=== PATIENT | male | born 2005 | race Caucasian/White ===

== ENCOUNTER 2024-06-09 22:42 | Emergency (ER) | payer BC, SELFPAY ==
[2024-06-09 22:47] VITALS: BP 161/94; PULSE 101; TEMP 36.6; O2SAT 98; BMI 44.3
--- NOTE | 2024-06-09 23:06 | ED_ITS ---
HPI - Abdominal Pain General Chief Complaint: Abdominal Pain Stated Complaint: ABDOMINAL PAIN Time Seen by Provider: 06/09/24 22:49 Source: patient Mode of arrival: walk-in Limitations: no limitations History of Present Illness HPI narrative: This 19-year-old male presents for evaluation of generalized abdominal pain. He points to the middle area of his abdomen/periumbilical area as area of greatest pain. His symptoms started earlier today. He has had some nausea but no vomiting. He states he did not eat lunch after having breakfast this morning but did have some [employer] earlier in the day that upset his stomach. He did have several episodes of soft stools. The mother looked at the last stool and stated that it looked like diarrhea. He has not had any fever or cough. He denies any chest pain or shortness of breath. He denies any flank pain or urinary pain. The mother states that he never complains which is why she thought he should be seen in the emergency department. Related Data Allergies Allergy/AdvReac Type Severity Reaction Status Date / Time No Known Drug Allergies Allergy Verified 06/09/24 22:47 Review of Systems ROS Status of ROS 10 or more systems reviewed and unremark able except as noted in history and below PFSH PFSH Social History Little interest or pleasure in doing things: not at all Feeling down, depressed, or hopeless: not at all Exam Narrative Exam Narrative: Vital signs and Nursing Notes reviewed: Patient is afebrile, mildly tachycardic with a pulse of 101, blood pressure is elevated at 161/94, she is not hypoxic with pulse ox of 98% on room air General: Awake, alert, oriented, overweight adult male, no acute distress, lying comfortably on the stretcher HEENT: Normocephalic atraumatic, mucous membranes are moist and pink, eyes are clear, normal conjunctiva, vision is grossly intact, posterior pharynx is normal in appearance. Neck: Supple, no meningeal signs Chest: Lungs are clear to auscultation with good air entry, there is no wheezing rhonchi or rales appreciated no accessory muscle use, patient is speaking in complete sentences-no chest wall tenderness to palpation CVS: Regular rate and rhythm S1-S2, no murmurs rubs or gallops, pulses are brisk and equal bilaterally ABD: Obese, soft, nondistended, normal bowel sounds, there is tenderness in the periumbilical area and mildly in the right lower quadrant without rebound guarding rigidity, negative Rovsing sign, negative psoas sign Extremities: Moving all extremities, no lower extremity tenderness or swelling noted, negative Homans' sign, pulses are brisk and equal bilaterally Skin: Normal in appearance without rash,pallor, petechiae or purpura Neuro: No focal deficits Constitutional Vital Signs, click to edit/add: Last Vital Signs Temp 97.9 F 06/09/24 22:47 Pulse 101 H 06/09/24 22:47 Resp 18 06/09/24 22:47 BP 161/94 H 06/09/24 22:47 Pulse Ox 98 06/09/24 22:47 O2 Del Method Room Air 06/09/24 22:47 Course Vital Signs Vital signs: Vital Signs Temperature 97.9 F 06/09/24 22:47 Pulse Rate 101 H 06/09/24 22:47 Respiratory Rate 18 06/09/24 22:47 Blood Pressure 161/94 H 06/09/24 22:47 Pulse Oximetry 98 06/09/24 22:47 Oxygen Delivery Method Room Air 06/09/24 22:47 Temperature 97.9 F 06/09/24 22:47 Pulse Rate 101 H 06/09/24 22:47 Respiratory Rate 18 06/09/24 22:47 Blood Pressure 161/94 H 06/09/24 22:47 Pulse Oximetry 98 06/09/24 22:47 Oxygen Delivery Method Room Air 06/09/24 22:47 MDM - Abdominal Pain MDM Narrative Medical decision making narrative: This 19-year-old male presents for evaluation of abdominal pain that started earlier in the day associated with some mild nausea and loose stools. He has not had a fever. He had somewhat decreased appetite after having breakfast he stated that he did not feel like having lunch but did eat some [employer]. His pain was periumbilical upon arrival with some right lower quadrant tenderness to deep palpation. I was concerned he may have appendicitis versus gastroenteritis with nausea vomiting and diarrhea. An IV was placed and routine labs are ordered. His white count is mildly elevated at 12.2. He has a stable hemoglobin. Electrolytes are normal. Lipase is normal. Liver function tests are normal. CT of the abdomen pelvis with IV contrast shows findings consistent with acute appendicitis with mild hepatic steatosis, gallbladder spleen pancreas adrenal glands appeared unremarkable with no hydronephrosis. There was no evidence of bowel obstruction or colitis with a mildly dilated appendix up to 0.9 cm with mild adjacent inflammation. There was no free air or drainable f luid collection. Results of the CT scan were discussed with the patient and his mother. I also discussed these findings with general surgery at [facility], Dr Vinayak Torrez, and he has accepted for transfer to [facility]. He was medicated with IV Unasyn prior to transfer. Lab Data Labs: Lab Results 06/09/24 Range/Units 23:15 WBC 12.2 H (4.0-11.0) 10^3/uL RBC 5.20 (4.70-6.10) 10^6/uL Hgb 16.0 (14.0-18.0) g/dL Hct 46.3 (42.0-54.0) % MCV 89.0 (80.0-94.0) fL MCH 30.8 (25.9-34.0) pg MCHC 34.6 (29.9-35.2) g/dL RDW 12.9 (11.0-15.0) % Plt Count 236 (150-450) 10^3/uL MPV 10.2 (9.5-13.5) fL Neut % (Auto) 78.8 H (43.0-75.0) % Lymph % (Auto) 13.6 L (20.5-60.0) % Preston % (Auto) 6.0 (1.7-12.0) % Eos % (Auto) 1.2 (0.9-7.0) % Baso % (Auto) 0.2 (0.2-2.0) % Neut # (Auto) 9.6 H (1.4-6.5) 10^3/uL Lymph # (Auto) 1.7 (1.2-3.8) 10^3/uL Preston # (Auto) 0.7 (0.3-0.8) 10^3/uL Eos # (Auto) 0.1 (0.0-0.7) 10^3/uL Baso # (Auto) 0.0 (0.0-0.1) 10^3/uL Abs Immat Gran (auto) 0.03 (0.00-0.03) 10^3/uL Imm/Tot Granulo (auto) 0.2 (0.0-0.5) % Sodium 139 (136-145) mmol/L Potassium 3.6 (3.5-5.1) mmol/L Chloride 103 (98-107) mmol/L Carbon Dioxide 27.4 (21.0-32.0) mmol/L Anion Gap 12.2 BUN 10.0 (7.0-18.0) mg/dL Creatinine 0.95 (0.70-1.30) mg/dL Est GFR ( Amer) >60 (>=60 mL/min/1.73m^2) Est GFR (Non-Af Amer) >60 (>=60 mL/min/1.73m^2) BUN/Creatinine Ratio 10.5 Glucose 130 H (74-106) mg/dL Calcium 9.5 (8.5-10.1) mg/dL Total Bilirubin 0.5 (0.2-1.0) mg/dL AST 31 (15-37) U/L ALT 77 H (16-63) U/L Alkaline Phosphatase 74 (46-116) U/L Total Protein 7.8 (6.4-8.2) g/dL Albumin 3.5 (3.4-5.0) g/dL Globulin 4.3 g/dL Albumin/Globulin Ratio 0.8 Lipase 22.0 (16.0-77.0) U/L Discharge Plan Discharge Patient Disposition: Still a Patient
[2024-06-09 23:21] LABS: Basophils Percent Auto 0.2 % (0.2-2.0); Eosinophils Absolute Auto 0.1 10^3/uL (0.0-0.7); Eosinophils Percent Auto 1.2 % (0.9-7.0); Hematocrit 46.3 % (42.0-54.0); Immature Granulocytes Abs Auto 0.03 10^3/uL (0.00-0.03); Immature Granulocytes Pct Auto 0.2 % (0.0-0.5); Lymphocytes Absolute Auto 1.7 10^3/uL (1.2-3.8); Lymphocytes Percent Auto 13.6 % (20.5-60.0); Mean Corpuscular HGB Conc 34.6 g/dL (29.9-35.2); Mean Corpuscular Hemoglobin 30.8 pg (25.9-34.0); Mean Platelet Volume 10.2 fL (9.5-13.5); Monocytes Absolute Auto 0.7 10^3/uL (0.3-0.8); Neutrophils Absolute Auto 9.6 10^3/uL (1.4-6.5); Neutrophils Percent Auto 78.8 % (43.0-75.0); Platelet Count 236 10^3/uL (150-450); Red Cell Distribution Width 12.9 % (11.0-15.0); White Blood Count 12.2 10^3/uL (4.0-11.0)
[2024-06-09] MEDS: ONDANSETRON PF 4 MG/2 ML VIAL IV (23:24)
[2024-06-09] MEDS: 0.9 % SODIUM CHLORIDE 1,000 ML 1000 ML IV (23:24)
[2024-06-09] MEDS: KETOROLAC TROMETHAMINE 30 MG/ML VIAL IVP (23:24)
[2024-06-09 23:38] LABS: Alanine Aminotransferase 77 U/L (16-63); Albumin Globulin Ratio 0.8; Albumin Level 3.5 g/dL (3.4-5.0); Alkaline Phosphatase 74 U/L (46-116); Anion Gap 12.2; Aspartate Amino Transferase 31 U/L (15-37); BUN Creatinine Ratio 10.5; Bilirubin Total 0.5 mg/dL (0.2-1.0); Calcium 9.5 mg/dL (8.5-10.1); Carbon Dioxide 27.4 mmol/L (21.0-32.0); Chloride 103 mmol/L (98-107); Estimated GFR (African America >60 (>=60 mL/min/1.73m^2); Estimated GFR (Non-African Ame >60 (>=60 mL/min/1.73m^2); Globulin 4.3 g/dL; Glucose 130 mg/dL (74-106); Potassium 3.6 mmol/L (3.5-5.1); Sodium 139 mmol/L (136-145); Total Protein 7.8 g/dL (6.4-8.2)
[2024-06-10] MEDS: AMPICILLIN SODIUM/SULBACTAM NA 3 GM in 0.9 % SODIUM CHLORIDE 100 ML IV (00:08)
[2024-06-10 00:57] LABS: Bilirubin Urine NEGATIVE (NEGATIVE); Blood Urine NEGATIVE (NEGATIVE); Clarity Urine CLEAR (CLEAR); Color Urine YELLOW (YELLOW); Glucose Urine UA NEGATIVE (NEGATIVE); Ketones Urine NEGATIVE (NEGATIVE); Leukocyte Esterase Urine NEGATIVE (NEGATIVE); Nitrite Urine NEGATIVE (NEGATIVE); Protein Urine NEGATIVE (NEG/TRACE); Specific Gravity Urine <=1.005 (1.005-1.025); Urobilinogen Urine 0.2 EU/dL (0.2-1.0)
[2024-06-10 01:03] LABS: Bacteria Urine NONE SEEN #/HPF (NONE SEEN); Cast Seen? NONE SEEN #/LPF (NONE SEEN); Crystals Seen? None Seen #/HPF (None Seen); Mucus Urine NONE SEEN (NONE SEEN); RBC Urine NONE SEEN #/HPF (0-2); Squamous Epithelial Cell Urine NONE SEEN #/LPF (NONE/RARE); Urine Culture Indicated NO; WBC Urine NONE SEEN #/HPF (NONE SEEN)
[2024-06-10 01:18] VITALS: BP 150/78; PULSE 100; TEMP 36.6; O2SAT 98
== END 2024-06-10 01:18 | disposition short-term general hospital (02) ==
PROVIDERS: Emergency Provider Emergency Medicine; PCP Family Medicine
DX: K35.80 Unspecified acute appendicitis (principal)
CPT/HCPCS: 36415; 74177; 80053; 81001; 83690; 85025; 96361; 96365; 96375; 99285; J0295; J1885; J2405; Q9967